=== PATIENT | male | born 1945 | race Caucasian/White ===

== ENCOUNTER 2018-06-13 10:54 | Inpatient (IN) | payer OTHER ==
--- NOTE | 2018-06-13 11:16 | EDPHY ---
H & P Time Seen by Provider: 06/13/18 11:16 HPI/ROS: CHIEF COMPLAINT: Shortness of breath HISTORY OF PRESENT ILLNESS: Sick for 2 weeks started with a cold and hacking cough for 2 weeks. Worse over last 5 days. Was exposed to a RSV and grandson. Today in with 2 or 3 steps he gets very short of breath and has to stop. Symptoms severe but not associated with chest pain. No fevers or chills. Denies chest pain or leg swelling. No hemoptysis. REVIEW OF SYSTEMS: Eye: no change in vision ENT: no sore throat Cardiac: HPI Pulmonary: HPI Abdomen: no vomiting, diarrhea, abdominal pain Musculoskeletal: no back pain or leg swelling Skin: no rash Neuro: no headache Constitutional: no fever : no urinary symptoms A comprehensive 10 point review of systems is otherwise negative aside from elements mentioned in the history of present illness. PAST MEDICAL HISTORY: Includes rheumatic fever, prostate cancer, sleep apnea Social history: Nonsmoker General Appearance: Alert and conversant, cooperative. Eyes: No scleral icterus. ENT, Mouth: Dry mucous membranes. Respiratory: Left lower lobe crackles and rhonchi, mildly tachypneic, speaks in full sentences on nasal cannula. 87% on room air. Cardiovascular: Regular rate and rhythm. Gastrointestinal: Abdomen is soft and non tender. Neurological: Alert, face symmetric, normal motor and sensory in extremities. Skin: Warm and dry, no rashes. No calf tenderness. Musculoskeletal: No peripheral edema. Psychiatric: Not agitated. Emergency Department course/MDM: Presents with signs symptoms of pulmonary infection with hypoxemia. Plan for influenza and RSV, chest x-ray, normal saline IV bolus. 1215: Chest x-ray shows left lower lung pneumonia. 2nd lactate ordered. Severe sepsis with initial 3.4. Fluid bolus, ceftriaxone azithromycin, admit to hospitalist. Discussed with Dr. Kane Dinh at 12:15 p.m. BUN and creatinine noted to be elevated, normal saline fluid IV bolus. Initial lactate elevated but 2nd lactate lasted 2.6. Antibiotics chosen for community-acquired pneumonia. Supplemental oxygen applied nasal cannula to bring saturations into the mid 90s. Smoking Status: Former smoker Constitutional: Initial Vital Signs Temperature (C) 36.6 C 06/13/18 11:01 Heart Rate 134 H 06/13/18 11:01 Respiratory Rate 20 06/13/18 11:01 Blood Pressure 102/59 L 06/13/18 11:01 O2 Sat (%) 87 L 06/13/18 11:01 O2 Delivery Mode Room Air Allergies/Adverse Reactions: ENVIRONMENTAL Allergy (Uncoded 06/27/12 16:58) NASAL CONGESTION/RUNNY NOSE Home Medications: Medication Instructions Recorded Aspirin [Aspirin 81mg (OTC)] 81 mg PO DAILY 06/25/12 [place]-3 Fatty Acids [Fish Oil 1000 1,000 mg PO DAILY 06/25/12 mg (OTC)] Atorvastatin Calcium [Lipitor 10 10 mg PO HS 04/01/13 mg (*)] Acetaminophen [Tylenol 325mg (*)] 325 mg PO Q2D PRN 06/13/18 Glucosamine Sulfate [Glucosamine 500 mg PO HS 06/13/18 Sulfate 500 MG (*)] Herbals/Supplements -Info Only 1 ea PO DAILY 06/13/18 Ibuprofen [Motrin (*)] 200 mg PO Q2D PRN 06/13/18 Lisinopril [Zestril 5 mg (*)] 5 mg PO DAILY 06/13/18 Multivitamins [Multivitamin (*)] 1 each PO DAILY 06/13/18 Medical Decision Making - Diagnostics Imaging Results: Imaging Impressions Chest X-Ray 06/13/18 11:25 Impression: Large infiltrate involving the left lower lobe, particularly pronounced in the superior segment and to a lesser degree the posterior basilar segments, with a suspected tiny left pleural effusion. Clinical correlation and follow-up to assure resolution recommended. Imaging: Discussed imaging studies w/ on call Radiologist, I viewed and interpreted images myself Differential Diagnosis: Differential diagnosis considered for shortness of breath including but not limited to pulmonary infectious process, COPD, asthma, pulmonary embolus and congestive heart failure. Critical Care Time: Critical care time spent by me, Dr. Hester, exclusively with the care of this patient was 35 minutes, exclusive of PA or COMPUTING SYSTEMS MECHANIC time and exclusive of separate procedures. The organ system at risk was pulmonary and I ordered IV fluids, multiple diagnostics, ceftriaxone and azithromycin, supplemental oxygen to stabilize the patient and prevent worsening of the patient's condition. - Data Points Laboratory Results: Laboratory Results 06/13/18 11:32 06/13/18 11:32 06/13/18 06/13/18 06/13/18 11:32 11:32 11:32 WBC 11.80 10^3/uL H 10^3/uL (3.80-9.50) RBC 4.47 10^6/uL 10^6/uL (4.40-6.38) Hgb 13.0 g/dL L g/dL (13.7-17.5) Hct 37.5 % L % (40.0-51.0) MCV 83.9 fL fL (81.5-99.8) MCH 29.1 pg pg (27.9-34.1) MCHC 34.7 g/dL g/dL (32.4-36.7) RDW 14.4 % % (11.5-15.2) Plt Count 217 10^3/uL 10^3/uL (150-400) MPV 10.8 fL fL (8.7-11.7) Neut % (Auto) Not Reported Lymph % (Auto) Not Reported [place] % (Auto) Not Reported Eos % (Auto) Not Reported Baso % (Auto) Not Reported Nucleat RBC Rel Count Not Reported Absolute Neuts (auto) Not Reported Absolute Lymphs (auto) Not Reported Absolute Monos (auto) Not Reported Absolute Eos (auto) Not Reported Absolute Basos (auto) Not Reported Absolute Nucleated RBC Not Reported Immature Gran % Not Reported Seg Neutrophils % 48.0 % % Band Neutrophils % 36.0 % % Lymphocytes % 3.0 % % Monocytes % 5.0 % % Eosinophils % 0.0 % % Basophils % 0.0 % % Metamyelocytes % 7.0 % % Myelocytes % 1.0 % % Promyelocytes % 0.0 % % Blast Cells % 0.0 % % Immature Gran # Not Reported Absolute Seg Neuts 5.66 10^3/uL 10^3/uL (1.70-6.50) Absolute Band Neuts 4.25 10^3/uL H 10^3/uL (0.00-0.70) Absolute Lymphocytes 0.35 10^3/uL L 10^3/uL (1.00-3.00) Absolute Monocytes 0.59 10^3/uL 10^3/uL (0.30-0.80) Absolute Eosinophils 0.00 10^3/uL L 10^3/uL (0.03-0.40) Absolute Basophils 0.00 10^3/uL L 10^3/uL (0.02-0.10) Absolute Metamyelocyte 0.83 10^3/mL H 10^3/mL (0.00-0.00) Absolute Myelocytes 0.12 10^3/mL H 10^3/mL (0.00-0.00) Absolute Promyelocytes 0.00 10^3/uL 10^3/uL (0.00-0.00) Absolute Plasma Cells 0.00 10^3/uL 10^3/uL (0.00-0.00) Nucleated RBCs 0 /100 WBC /100 WBC (0-0) Absolute Blast Cells 0.00 10^3/uL 10^3/uL (0.00-0.00) Plasma Cells % 0.0 % % Toxic Granulation PRESENT H Platelet Estimate ADEQUATE (ADEQ) Polychromasia 1+ H Oval Macrocytes 2+ H Echinocytes 1+ H PT 15.9 SEC H SEC (12.0-15.0) INR 1.33 H (0.83-1.16) APTT 32.0 SEC SEC (23.0-38.0) VBG Lactic Acid Sodium 131 mEq/L L mEq/L (135-145) Potassium 4.4 mEq/L mEq/L (3.5-5.2) Chloride 100 mEq/L mEq/L (97-110) Carbon Dioxide 17 mEq/l L mEq/l (22-31) Anion Gap 14 mEq/L mEq/L (6-14) BUN 37 mg/dL H mg/dL (7-23) Creatinine 1.7 mg/dL H mg/dL (0.7-1.3) Estimated GFR 40 Glucose 176 mg/dL H mg/dL (70-100) Calcium 8.3 mg/dL L mg/dL (8.5-10.4) Total Bilirubin 1.2 mg/dL mg/dL (0.1-1.4) 06/13/18 11:32 WBC RBC Hgb Hct MCV MCH MCHC RDW Plt Count MPV Neut % (Auto) Lymph % (Auto) [place] % (Auto) Eos % (Auto) Baso % (Auto) Nucleat RBC Rel Count Absolute Neuts (auto) Absolute Lymphs (auto) Absolute Monos (auto) Absolute Eos (auto) Absolute Basos (auto) Absolute Nucleated RBC Immature Gran % Seg Neutrophils % Band Neutrophils % Lymphocytes % Monocytes % Eosinophils % Basophils % Metamyelocytes % Myelocytes % Promyelocytes % Blast Cells % Immature Gran # Absolute Seg Neuts Absolute Band Neuts Absolute Lymphocytes Absolute Monocytes Absolute Eosinophils Absolute Basophils Absolute Metamyelocyte Absolute Myelocytes Absolute Promyelocytes Absolute Plasma Cells Nucleated RBCs Absolute Blast Cells Plasma Cells % Toxic Granulation Platelet Estimate Polychromasia Oval Macrocytes Echinocytes PT INR APTT VBG Lactic Acid 3.4 mmol/L H mmol/L (0.7-2.1) Sodium Potassium Chloride Carbon Dioxide Anion Gap BUN Creatinine Estimated GFR Glucose Calcium Total Bilirubin Medications Given: Discontinued Medications Albuterol (Proventil Neb) 3 ml IH ONCE ONE Stop: 06/13/18 14:46 Last Admin: 06/13/18 14:46 Dose: 3 ml Sodium Chloride (Ns) 2,900 mls @ 5,800 mls/hr 30 ml/kg infuse over 30 min ( 2900 ml) IV EDNOW ONE PRN Reason: Protocol Stop: 06/13/18 11:54 Last Admin: 06/13/18 11:37 Dose: 2,900 mls Azithromycin 500 mg/ Dextrose 255 mls @ 255 mls/hr IV EDNOW ONE PRN Reason: Protocol Stop: 06/13/18 13:10 Last Admin: 06/13/18 14:14 Dose: Not Given Ceftriaxone Sodium/Dextrose (Rocephin 1 Gm (Premix)) 50 mls @ 100 mls/hr IV EDNOW ONE PRN Reason: Protocol Stop: 06/13/18 12:39 Last Admin: 06/13/18 12:41 Dose: 50 mls Azithromycin 500 mg/ Sodium (Chloride) 255 mls @ 255 mls/hr IV EDNOW ONE PRN Reason: Protocol Stop: 06/13/18 13:59 Last Admin: 06/13/18 13:20 Dose: 255 mls Departure - Departure Disposition: [facility] Inpatient Acute Clinical Impression: Pneumonia Qualifiers: Pneumonia type: due to unspecified organism Laterality: left Lung location: lower lobe of lung Qualified Code(s): J18.1 - Lobar pneumonia, unspecified organism Condition: Good
[2018-06-13] MEDS ORDERED: NS 2,900 ML IV ONE (11:25)
[2018-06-13 11:46] LABS: PLATELET COUNT 217 10^3/uL (150-400)
[2018-06-13 12:09] LABS: INR 1.33 (0.83-1.16); PROTIME(PATIENT) 15.9 SEC (12.0-15.0)
[2018-06-13] MEDS ORDERED: AZITHROMYCIN IV 500 MG in D5W 250 ML IV ONE (12:11)
--- NOTE | 2018-06-13 12:15 | CPEKG ---
Test Reason : OPEN Blood Pressure : / mmHG Vent. Rate : 127 BPM Atrial Rate : 127 BPM P-R Int : 145 ms QRS Dur : 090 ms QT Int : 291 ms P-R-T Axes : 077 081 052 degrees QTc Int : 424 ms Sinus tachycardia Borderline right axis deviation Abnormal R-wave progression, early transition Confirmed by Curtis Whipple ([id number]) on 06/13/2018 12:14:51 PM Referred By: CURTIS WHIPPLE Confirmed By:Curtis Whipple
[2018-06-13] MEDS ORDERED: ONDANSETRON DISINTEGRATING 4 MG TAB PO PRN (12:26)
[2018-06-13] MEDS ORDERED: ONDANSETRON 4 MG/2 ML VIAL IVP PRN (12:26)
[2018-06-13] MEDS ORDERED: AZITHROMYCIN IV 500 MG in NS 250 ML IV ONE (13:00)
--- NOTE | 2018-06-13 13:10 | GHP ---
[f rep st] HISTORY AND PHYSICAL DATE OF ADMISSION: 06/13/2018 The patient is a pleasant 73-year-old gentleman with a history of prostate cancer, hypertension, and hyperlipidemia who presents to the ER with about 14 days of feeling poorly. He has a 6-week-old gran dchild who has recently been diagnosed with RSV, and he has had some exposure. He has had viral symp toms, bu then over the weekend began feeling worse with cough. It was initially productive of sputum but is now dry. He also had subjective fevers and chills. He has taken Tylenol and ibuprofen. He ultimately decided to come to the emergency department today for further evaluation and care. He martins s not had hemoptysis. He was a smoker for 20 years, but quit in the s. He has not had lower extre mity swelling, PND, or orthopnea. He has not had confusion. REVIEW OF SYSTEMS: A complete 10-point review of systems conducted and is negative except as noted i n the HPI. PAST MEDICAL HISTORY: Hyperlipidemia, mild hypertension, prostate cancer, sleep apnea, and rheumatic fever. SOCIAL HISTORY: He quit smoking 20 years ago. Quit drinking 20 years ago. 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 FAMILY HISTORY: Reviewed and unremarkable. PHYSICAL EXAMINATION: PRESENTING VITALS: Temp 36.6, blood pressure 102/59, pulse 134, breathing 20 times a minute, 87% on room air. GENERAL: In no acute distress. HEENT: Sclerae anicteric. Oropha rynx clear. Mucous membranes moist. NECK: Supple with no lymphadenopathy or JVD. LUNGS: Decrease d breath sounds at the left base, with good air movement. No wheeze. No prolonged expiratory phase. ABDOMEN: Soft, nontender, and nondistended. LOWER EXTREMITIES: No edema. Calves nontender. SKI N: Without rash. NEUROLOGIC: Nonfocal. LABORATORY: Sodium 131, potassium 4.4, chloride 100, bicarb 17, BUN 37, creatinine 1.7. His baselin e creatinine is normal at 1.1 about a year ago. Glucose 176. Venous lactate is 3.4; repeat is pendi ng. INR is elevated at 1.33. White count 11.8, hematocrit 37.5, platelets 217,000. IMAGING: Chest x-ray interpreted by me shows a large left lower lobe infiltrate. TEST DATA: EKG interpreted by me shows sinus tach at 127 with normal axis and intervals. No ST or T -wave changes. I have discussed the case with Dr. Wilberto Hester. ASSESSMENT/PLAN: A 73-year-old gentleman who presents to the hospital with left lower pneumonia and severe sepsis. 1. Severe sepsis, elevated lactate, tachycardia, leukocytosis source. 2. Pneumonia: This is going to be treated as community-acquired pneumonia with ceftriaxone and azit hromycin. Given his asbestos exposure, the patient will require repeat CT at some point. 3. Acute hypoxemic respiratory failure secondary to airspace disease. 4. Hyponatremia: I suspect this is hypovolemic hyponatremia. 5. Acute kidney injury: The patient has acute kidney injury and is likely prerenal. Will hydrate a nd follow tomorrow. 6. Metabolic acidosis: He has a mild acidosis without anion gap; we will follow. 7. Elevated INR: This is likely secondary to his severe sepsis. 8. Prophylaxis: Low molecular-weight heparin. DISPOSITION: Inpatient status. 40 minutes critical care. /[id number]/MODL
[2018-06-13] MEDS ORDERED: ALBUTEROL 3 ML DEYVIAL ONE (14:44)
[2018-06-13] MEDS ORDERED: ALBUTEROL 3 ML DEYVIAL IH ONE (14:45)
[2018-06-13] MEDS: NS 1,000 ML IV SCH (15:24)
[2018-06-13] MEDS: ACETAMINOPHEN 325 MG TAB PO PRN (16:03)
--- NOTE | 2018-06-13 17:41 | PDMN ---
Medical Necessity Medical necessity: Pt meets inpt criteria per MD order and MCG M-160, Sepsis and Other Febrile Illness, without Focal Infection, A-3 days. 73 y/o w/hx prostate ca, HTN, hyperlipidemia, and asbestos exposure in past admitted w/LLL pneumonia and severe sepsis as evidenced by elev lactate (3.4), tachy, leukocytosis, AHRF, hyponatremia, HILARY, and metabolic acidosis. IVF, IV ABX's, suppl O2- currently requiring 4 L, anticipate>2MN for ongoing management of above.
[2018-06-13] MEDS ORDERED: NS BOLUS 500 ML (Wide open) IV ONE (18:00)
[2018-06-13] MEDS ORDERED: CALCIUM CARBONATE 500 MG CHEWABLE TAB PO PRN (20:06)
[2018-06-13] MEDS: BENZONATATE 100 MG CAP PO PRN (20:18)
[2018-06-13] MEDS: CEPACOL LOZENGE PO PRN (20:18)
[2018-06-13] MEDS: GLUCOSAMINE SULF 500 MG CAP PO SCH (20:49)
[2018-06-13] MEDS: ATORVASTATIN CALCIUM 10 MG TAB PO SCH (20:49)
[2018-06-13] MEDS ORDERED: VANCOMYCIN 1.5 GM in NS 250 ML IV SCH (22:30)
[2018-06-13] MEDS: GUAIFENESIN/DM 10 ML UDCUP PO PRN (22:45)
[2018-06-14] MEDS: GUAIFENESIN/DM 10 ML UDCUP PO PRN ×3 (02:53→18:00)
[2018-06-14 05:50] LABS: PLATELET COUNT 213 10^3/uL (150-400)
[2018-06-14] MEDS: ASPIRIN 81 MG CHEWABLE TAB PO SCH (07:34)
[2018-06-14] MEDS: MULTIVITAMINS 1 EACH TAB PO SCH (07:34)
[2018-06-14] MEDS: OMEGA-3 FATTY ACIDS 1,000 MG CAP PO SCH (07:34)
[2018-06-14] MEDS: BENZONATATE 100 MG CAP PO PRN ×2 (07:34→16:51)
[2018-06-14] MEDS: ENOXAPARIN 40 MG/0.4 ML SYR SC SCH (07:35)
[2018-06-14] MEDS ORDERED: AZITHROMYCIN IV 500 MG in NS 250 ML IV SCH (09:00)
[2018-06-14] MEDS ORDERED: Herbals/Supplements -Info Only PO SCH (09:00)
[2018-06-14] MEDS: CEPACOL LOZENGE PO PRN ×3 (09:49→18:00)
--- NOTE | 2018-06-14 10:09 | HOSPPROG ---
Hospitalist Progress Note Assessment/Plan: 73 yo M w pneumococcal sepsis sepsis: severe septic physiology largely resolved bacteremia: 2/2 severe pneumonia follow ID to see CAP: ceftriaxone monotherapy HILARY: resolved proph: LMWH Subjective: case d/w dr escobar. blood cx + for strep pneumo Objective: Vital Signs Temp Pulse Resp BP Pulse Ox 36.7 C 108 H 22 H 138/82 H 93 06/14/18 07:37 06/14/18 07:37 06/14/18 07:37 06/14/18 07:37 06/14/18 07:37 Laboratory Results 06/14/18 05:15 06/14/18 05:15 06/13/18 06/14/18 06/15/18 05:59 05:59 05:59 Intake Total 8002 Output Total 1125 200 Balance 6877 -200 PT 15.9 SEC (12.0-15.0) H 06/13/18 11:32 INR 1.33 (0.83-1.16) H 06/13/18 11:32 - Physical Exam Constitutional: no apparent distress, appears nourished Eyes: PERRL, anicteric sclera Ears, Nose, Mouth, Throat: moist mucous membranes, hearing normal Cardiovascular: regular rate and rhythym, no murmur, rub, or gallop Respiratory: no respiratory distress, other (decreased/absent breath sounds L base) Gastrointestinal: normoactive bowel sounds, soft, non-tender abdomen Genitourinary: no bladder fullness, No reno in urethra Skin: warm, normal color Musculoskeletal: full muscle strength Neurologic: AAOx3 ICD10 Worksheet Patient Problems: Problems Problem Status Onset Pneumonia Acute Adenocarcinoma of prostate Active
--- NOTE | 2018-06-14 12:20 | ASMTCMCOM ---
CM Note CM Note Notes: Pt is a 73 y/o man admitted for LLL PNA. PT has been ordered and awaiting recommendations. ID has been consulted. Transitional care is following. Needs are TBD at this time. CM to follow. Plan: TBD Date Signed: 06/14/2018 12:20 PM Electronically Signed By:CORINNA Bhatti
--- NOTE | 2018-06-14 12:29 | PDCONSULT ---
Mail Processing Clerk Note: Infectious Diseases Consult Note Impression: 73-year-old man who presents to emergency department severe sepsis manifesting as kidney injury and new oxygen requirement, found to have Streptococcus pneumoniae bloodstream infection secondary to left lung pneumonia. Overall he feels improved since admission will focus therapy targeting Streptococcus pneumoniae and will plan oral step-down therapy if he continues to progress in the next 24-48 hours. Acute kidney injury the resolved but he does have an ongoing oxygen need suggesting ongoing pulmonary dysfunction. Discussed in details with the patient and his at bedside expected progression of pneumococcal pneumonia with bloodstream infection. 1. Severe sepsis present on admission with acute kidney injury in new oxygen requirement, resolved acute kidney injury 2. Streptococcus pneumoniae bloodstream infection, pneumonia source 3. Streptococcus pneumoniae left-sided pneumonia 4. Hypoxia requiring supplemental oxygen 5. Acute kidney injury present on admission, improved Plan: 1. Continue ceftriaxone 1 g daily 2. Await susceptibilities of bloodstream isolate 3. Reviewed in detail potential side effects of beta-lactam antibiotics to include: allergy, rash, nausea, antibiotic-associated diarrhea, Clostridioides difficile colitis. Adolfo Cadet MD Infectious Diseases Chief Complaint: Cough, fever, inability to get out of bed Requesting Provider: Dr. Dinh Reason for Referral: Consultation was requested by Dr. Dinh regarding antimicrobial management. HPI: 73-year-old man who presented with approximately 2-3 weeks of a cough illness with fevers that progressed to prostration over the past 4-5 days. He presented to the ED after this 2 week progressive illness due to worsen shortness of breath and inability to get out of bed for approximately 4 days. Chronology of Present Illness: Location of symptoms: Pulmonary Onset of symptoms: Approximately 13 days prior to admission Initial signs/symptoms: Initially developed a nonproductive cough which he thought was related to exposure to multiple family members, including a 4-month- old grandchild, who evolving diagnosed with RSV infection; this was associated with fevers and chills that occurred throughout the day Associated signs/symptoms at onset: Fevers and chills throughout the day and night, nonproductive cough, general fatigue, mild shortness of breath Changes since onset: Nonproductive cough has become more severe and more frequent with only occasional sputum production, intensity of fevers and chills that occur throughout the day has increased, general fatigue has progressed to the point he has been unable to get out of bed for the past 4 days (prior to admission); no rash, arthralgias, myalgias, sinus fullness or pain, sore throat , or headaches Exacerbating factors: None identified Relieving factors: Improved with antibiotics and fluid resuscitation since admission Antibiotics since symptom onset: Ceftriaxone and azithromycin prescribed at hospital admission Change in symptoms with antibiotics: Improvement in general fatigue, improvement in appetite, generally feels improved Relevant social history: Multiple family members diagnosed with RSV infection in the past couple of weeks Relevant PMHx/PSHx: [place] Reviewed patient medical records in [facility], [place], and [facility] ([facility] 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 No travel in the past 2 years with most recent travel in [place] 2 years prior to this admission. Past Medical History: Prostate cancer with resection, no chemotherapy or radiation therapy; hypertension; hyperlipidemia Past Surgical History: Prostate resection due to cancer, fracture fixation in the lower extremity with hardware removal Social History: Does not use tobacco products; Does not consume marijuana products; no alcohol use; Does not use any other drugs currently or in the past Family History: No family members with recurrent infections Allergies: NKDA Medications: Reviewed in medical record and confirmed with patient. ROS: 10 organ systems reviewed; pertinent positives and negatives listed in the HPI, all other organ systems negative. Physical Exam: VS: Reviewed Gen: No acute distress; Breathing comfortably with supplemental oxygen at 4 L by nasal cannula; Able to speak in complete sentences but does cough with conversation Eyes: No conjunctival injection; No scleral icterus HENT: No gross deformities Neck: No limitation in range of motion Pulm: Audible inspiratory sounds to the base on the right, inspiratory breath sounds not heard at the base on the left; bronchial breath sounds in the left with associated rales; No wheeze or rhonchi CV: Normal S1 and S2; Regular tachycardia; No murmurs, rubs, or gallops; No lower extremity edema Abd: Not distended; Normo-active bowel sounds; Soft; Non-tender Skin: A full skin exam including exposed bilateral upper extremities, bilateral lower extremities to the knees, face, neck, abdomen, chest, and back performed; Skin intact, warm, with no rash MSK: Joints without erythema or edema; No gross limitation in range of motion Ext: No clubbing or cyanosis Neuro: Awake and alert Psych: Normal mood and affect Labs/Imaging: All microbiology testing (culture and non-culture) reviewed in the medical record. Personally reviewed and interpreted the images of the following radiographs: Chest x-ray showing left lower lobe consolidation Medications Generic Name Dose Route Start Last Admin Trade Name Freq PRN Reason Stop Dose Admin Ceftriaxone Sodium/Dextrose 50 mls @ 100 mls/hr 06/14/18 09:00 06/14/18 08:53 Rocephin 1 Gm (Premix) IV 07/14/18 08:59 50 mls DAILY MARA Protocol Discontinued Medications Generic Name Dose Route Start Last Admin Trade Name Freq PRN Reason Stop Dose Admin Azithromycin 500 mg/ Sodium 255 mls @ 255 mls/hr 06/13/18 13:00 06/13/18 13: 20 Chloride IV 06/13/18 13:59 255 mls EDNOW ONE Protocol Azithromycin 500 mg/ Sodium 255 mls @ 255 mls/hr 06/14/18 09:00 06/14/18 07: 35 Chloride IV 07/14/18 08:59 255 mls DAILY MARA Protocol Ceftriaxone Sodium/Dextrose 50 mls @ 100 mls/hr 06/13/18 12:10 06/13/18 12:41 Rocephin 1 Gm (Premix) IV 06/13/18 12:39 50 mls EDNOW ONE Protocol Microbiology 06/13/18 11:32 Blood Blood Panel (PCR) - Final Streptococcus Pneumoniae 06/13/18 12:43 Blood Blood Culture - Preliminary Gram Positive Cocci Chains 06/13/18 11:32 Blood Blood Culture - Preliminary 06/13/18 11:32 Blood Gram Positive Cocci Chains Laboratory Tests 06/13/18 06/13/18 06/13/18 11:32 11:32 11:32 WBC 11.80 H Hgb 13.0 L Plt Count 217 Absolute Seg Neuts 5.66 Absolute Band Neuts 4.25 H Absolute Lymphocytes 0.35 L VBG Lactic Acid 3.4 H Creatinine 1.7 H Nasal Influenza A PCR Nasal Influenza B PCR RSV (PCR) 06/13/18 06/14/18 06/14/18 12:43 01:33 05:15 WBC 15.57 H Hgb 11.1 L Plt Count 213 Absolute Seg Neuts 14.95 H Absolute Band Neuts 0.31 Absolute Lymphocytes 0.31 L VBG Lactic Acid 1.5 Creatinine Nasal Influenza A PCR NEGATIVE FOR FLU A Nasal Influenza B PCR NEGATIVE FOR FLU B RSV (PCR) NEGATIVE FOR RSV 06/14/18 05:15 WBC Hgb Plt Count Absolute Seg Neuts Absolute Band Neuts Absolute Lymphocytes VBG Lactic Acid Creatinine 1.1 Nasal Influenza A PCR Nasal Influenza B PCR RSV (PCR) Ongoing monitoring for antimicrobial toxicity with: CBC, BMP.
[2018-06-14] MEDS: NS 1,000 ML IV SCH ×2 (16:07→22:23)
[2018-06-14] MEDS: GLUCOSAMINE SULF 500 MG CAP PO SCH (21:07)
[2018-06-14] MEDS: guaiFENesin/CODEINE PHOS 10 ML UDCUP PO PRN (21:07)
[2018-06-14] MEDS: ATORVASTATIN CALCIUM 10 MG TAB PO SCH (21:07)
[2018-06-14] MEDS ORDERED: ALBUTEROL 3 ML DEYVIAL IH PRN (23:12)
[2018-06-15] MEDS ORDERED: guaiFENesin/CODEINE PHOS 10 ML UDCUP PO ONE (01:00)
[2018-06-15] MEDS: ACETAMINOPHEN 325 MG TAB PO PRN (01:00)
[2018-06-15] MEDS: BENZONATATE 100 MG CAP PO PRN (01:00)
[2018-06-15] MEDS: NS 1,000 ML IV SCH ×2 (04:51→21:09)
[2018-06-15] MEDS: GUAIFENESIN/DM 10 ML UDCUP PO PRN (04:51)
--- NOTE | 2018-06-15 09:46 | HOSPPROG ---
Hospitalist Progress Note Assessment/Plan: 73 yo M w pneumococcal sepsis sepsis: severe septic physiology resolved bacteremia: 2/2 severe pneumonia follow ceftriaxone repeat cx at discretion of ID AHRF: 2/2 dense airspace disease CAP: ceftriaxone monotherapy hyponatremia: mild, follow HILARY: resolved proph: LMWH Subjective: cxr w dense LLL infiltrate, no effusion (interp by me). case d/w dr patricia Objective: Vital Signs Temp Pulse Resp BP Pulse Ox 36.6 C 92 20 166/89 H 97 06/15/18 08:00 06/15/18 08:00 06/15/18 08:00 06/15/18 08:00 06/15/18 08:00 Laboratory Results 06/14/18 05:15 06/15/18 04:53 06/14/18 06/15/18 06/16/18 05:59 05:59 05:59 Intake Total 8002 5495 1350 Output Total 1125 1150 Balance 6877 4345 1350 PT 15.9 SEC (12.0-15.0) H 06/13/18 11:32 INR 1.33 (0.83-1.16) H 06/13/18 11:32 - Physical Exam Constitutional: no apparent distress, not in pain Eyes: PERRL, anicteric sclera Ears, Nose, Mouth, Throat: moist mucous membranes, hearing normal Cardiovascular: regular rate and rhythym, no murmur, rub, or gallop Respiratory: no respiratory distress, other (absent breath sounds LLL) Gastrointestinal: normoactive bowel sounds, soft, non-tender abdomen Genitourinary: no bladder fullness, No reno in urethra Skin: warm, normal color Musculoskeletal: full muscle strength Neurologic: AAOx3 ICD10 Worksheet Patient Problems: Problems Problem Status Onset Pneumonia Acute Adenocarcinoma of prostate Active
[2018-06-15] MEDS: MULTIVITAMINS 1 EACH TAB PO SCH (10:04)
[2018-06-15] MEDS: ASPIRIN 81 MG CHEWABLE TAB PO SCH (10:04)
[2018-06-15] MEDS: OMEGA-3 FATTY ACIDS 1,000 MG CAP PO SCH (10:05)
[2018-06-15] MEDS: ENOXAPARIN 40 MG/0.4 ML SYR SC SCH (10:05)
--- NOTE | 2018-06-15 13:22 | PCMIDPN ---
Assessment/Plan: Assessment: 73-year-old man with pneumococcal bloodstream infection secondary to pneumonia was clinically improving. No longer has physiologic derangements consistent with severe sepsis that he had a presentation in his kidney dysfunction as normalized. He continues to require supplemental oxygen is quite short of breath without this at this time. 1. Pneumococcal bloodstream infection secondary to community onset pneumonia 2. Pneumococcal pneumonia, left-sided 3. Hypoxia requiring ongoing supplemental oxygen 4. Acute kidney injury present on admission, resolved Plan: 1. Continue ceftriaxone 1 g daily 2. Plan to transition to oral therapy at discharge 3. Reviewed in detail potential side effects of beta-lactam antibiotics to include: allergy, rash, nausea, antibiotic-associated diarrhea, Clostridioides difficile colitis. Adolfo Cadet MD Infectious Diseases 06/15/18 13:22 Subjective: No fever or chills in the past 24-hours. No diarrhea, nausea, or other GI symptoms. No rash. Appetite improving. Improved since admission but not back to baseline health. Objective: Vital Signs Temp Pulse Resp BP Pulse Ox 36.6 C 87 20 149/69 H 95 06/15/18 11:54 06/15/18 11:54 06/15/18 11:54 06/15/18 11:54 06/15/18 11:54 Laboratory Results 06/14/18 05:15 06/15/18 04:53 06/14/18 06/15/18 06/16/18 05:59 05:59 05:59 Intake Total 8002 5495 1350 Output Total 1125 1150 Balance 6877 4345 1350 Medications Generic Name Dose Route Start Last Admin Trade Name Freq PRN Reason Stop Dose Admin Ceftriaxone Sodium/Dextrose 50 mls @ 100 mls/hr 06/14/18 09:00 06/15/18 10:05 Rocephin 1 Gm (Premix) IV 07/14/18 08:59 50 mls DAILY MARA Protocol Discontinued Medications Generic Name Dose Route Start Last Admin Trade Name Freq PRN Reason Stop Dose Admin Ceftriaxone Sodium/Dextrose 50 mls @ 100 mls/hr 06/13/18 12:10 06/13/18 12:41 Rocephin 1 Gm (Premix) IV 06/13/18 12:39 50 mls EDNOW ONE Protocol Azithromycin 500 mg/ Sodium 255 mls @ 255 mls/hr 06/13/18 13:00 06/13/18 13: 20 Chloride IV 06/13/18 13:59 255 mls EDNOW ONE Protocol Azithromycin 500 mg/ Sodium 255 mls @ 255 mls/hr 06/14/18 09:00 06/14/18 07: 35 Chloride IV 07/14/18 08:59 255 mls DAILY MARA Protocol Vancomycin HCl 1.5 gm/ Sodium 250 mls @ 166.667 mls/hr 06/13/18 22:30 22:45 Chloride IV 07/13/18 22:29 250 mls [facility] Microbiology 06/13/18 11:32 Blood Blood Panel (PCR) - Final Streptococcus Pneumoniae 06/13/18 12:43 Blood Blood Culture - Preliminary Streptococcus Pneumoniae 06/13/18 11:32 Blood Blood Culture - Preliminary 06/13/18 11:32 Blood Streptococcus Pneumoniae Laboratory Tests 06/13/18 06/13/18 06/14/18 11:32 11:32 05:15 WBC 11.80 H 15.57 H Hgb 13.0 L 11.1 L Plt Count 217 213 Creatinine 1.7 H 06/14/18 06/15/18 05:15 04:53 WBC Hgb Plt Count Creatinine 1.1 1.0 - Physical Exam General Appearance: apparent distress, non-toxic EENT: No scleral icterus Respiratory: No respiratory distress, No accessory muscle use, No wheezing ( Rales posteriorly on the left associated with bronchial breathing on the mid lung zone) Neck: full range of motion, supple Cardiac/Chest: regular rate, rhythm, No bradycardia, No tachycardia, No diastolic murmur, No systolic murmur Extremities: No erythema Abdomen: non-tender, soft, distended, No guarding Skin: No erythema Neuro/Psych: alert, oriented x 3, depressed affect, No confused - Time Spent With Patient Time Spent with Patient: greater than 25 minutes Time Spent with Patient: Greater than 25 minutes spent on this patients care, greater than 50% of time spent counseling, educating, and coordinating care regarding the above mentioned plan. ICD10 Worksheet Patient Problems: Problems Problem Status Onset Pneumonia Acute Adenocarcinoma of prostate Active
--- NOTE | 2018-06-15 13:56 | PDIAF ---
- Diagnosis Code Status: Full Code - Medication Management Discharge Medications: electronically signed and located in the Home Medication List. - Orders Isolation Type: None - Follow Up Care Current Providers and Referrals: Jewel Rivera MD [Primary Care Provider] - As per Instructions Adolfo Cadet MD [Medical Doctor] - 06/29/18 2:30 pm
--- NOTE | 2018-06-15 14:31 | ASMTCMCOM ---
CM Note CM Note Notes: Pts case discussed w/ Jessica RN. PT is still pending. Pt currently on 3.5L of o2. Per ID's note, pt will most likely be able to switch from ivabx to orals. CM met w/ pt and pts for dispo planning. Pt and would like HC services. Pts is currently feeling under the weather and feels like the extra support will be helpful. They [facility] using [facility]. [facility] able [facility] accept. Pts - Jamie wanted to give her number to [facility]. It is P#: [phone]. Pts PCP is Dr. Varner. CM to follow. Plan: [facility]; PT Date Signed: 06/15/2018 02:31 PM Electronically Signed By:CORINNA Bhatti
[2018-06-15] MEDS: GLUCOSAMINE SULF 500 MG CAP PO SCH (21:09)
[2018-06-15] MEDS: guaiFENesin/CODEINE PHOS 10 ML UDCUP PO PRN (21:09)
[2018-06-15] MEDS: ATORVASTATIN CALCIUM 10 MG TAB PO SCH (21:09)
[2018-06-16] MEDS: GUAIFENESIN/DM 10 ML UDCUP PO PRN ×2 (01:45→17:38)
[2018-06-16] MEDS: OMEGA-3 FATTY ACIDS 1,000 MG CAP PO SCH (08:07)
[2018-06-16] MEDS: ASPIRIN 81 MG CHEWABLE TAB PO SCH (08:08)
[2018-06-16] MEDS: ENOXAPARIN 40 MG/0.4 ML SYR SC SCH (08:08)
[2018-06-16] MEDS: MULTIVITAMINS 1 EACH TAB PO SCH (08:08)
--- NOTE | 2018-06-16 15:31 | HOSPPROG ---
Hospitalist Progress Note Assessment/Plan: Subjective Follow-up on sepsis and bacteremia. Patient states he is feeling much better as compared to when he 1st came in. His cough seems to be improving as well but still present. His was present at the bedside and updated as well. No acute events overnight. I did reduce his oxygen to 1 L from 3 and during my evaluation he was able to maintain normal oxygen saturations with 1 L. Objective Vital signs as detailed below Physical exam General-awake alert conversant no acute distress Heart-regular rate and rhythm no murmurs Lungs-normal respiratory effort with mild crackles at lung base no wheezing. Abdomen-soft nontender nondistended normal bowel sounds -no Collins catheter in place Extremities-no significant pitting edema or calf pain with palpation Skin-no concerning skin rashes noted Labs as detailed below Assessment and plan Sepsis-improved parameters. Bacteremia-strep pneumo. Repeat blood cultures with tomorrow morning's labs to document clearance. Acute hypoxic respiratory failure-improving. I was able to wean down oxygen during my evaluation. I considered scheduled nebulizers but no significant wheezing on exam. Pneumonia-community acquired. Improving with current therapy. I appreciate Infectious disease's assistance on the case as well. Hyponatremia-suspected hypovolemia related. Improving with IV fluids with sodium from 131-134. I think we can hold off on IV fluids at this point time. Acute kidney injury-resolved. Creatinine within normal limits. Hypertension-patient takes lisinopril 5 mg daily as an outpatient. Consider resuming tomorrow if continued stability. Obstructive sleep apnea-patient is compliant with home CPAP therapy. I encouraged him to bring his home CPAP machine to the hospital so that he can use while he is here. Hyperlipidemia-atorvastatin. DVT prophylaxis-Lovenox. Disposition-patient appears to be progressing well and likely able for discharge to home once medically clear. Objective: Vital Signs Temp Pulse Resp BP Pulse Ox 36.6 C 86 18 146/75 H 93 06/16/18 12:00 06/16/18 12:00 06/16/18 12:00 06/16/18 12:00 06/16/18 12:00 Microbiology 06/13/18 12:43 Blood Culture - Final Blood Streptococcus Pneumoniae Laboratory Results 06/14/18 05:15 06/16/18 06:10 03/22/19 03/23/19 03/24/19 05:59 05:59 05:59 Intake Total 5495 3000 Output Total 1150 350 Balance 4345 2650 PT 15.9 SEC (12.0-15.0) H 06/13/18 11:32 INR 1.33 (0.83-1.16) H 06/13/18 11:32 ICD10 Worksheet Patient Problems: Problems Problem Status Onset Pneumonia Acute Adenocarcinoma of prostate Active
--- NOTE | 2018-06-16 17:58 | PCMIDPN ---
Assessment/Plan: Assessment: 73-year-old man with pneumococcal bloodstream infection secondary to pneumonia was clinically improving. Continues to improve with decreasing oxygen required down to 1 L by nasal cannula. He is able to expectorate large amount of sputum which is likely underlying his improvement oxygen requirement. Discussed with patient and at bedside precautions to take with young grandchildren when they get sick in the role of vaccination to prevent recurrent pneumococcal pneumonia. 1. Pneumococcal bloodstream infection secondary to community onset pneumonia; improved 2. Pneumococcal pneumonia, left-sided 3. Hypoxia requiring ongoing supplemental oxygen; improved 4. Acute kidney injury present on admission; resolved Plan: 1. Continue ceftriaxone 1 g daily 2. Oral therapy at discharge will be amoxicillin 875 mg p.o. 3 times daily; stop date will be 06/24/2018 3. Reviewed in detail potential side effects of beta-lactam antibiotics to include: allergy, rash, nausea, antibiotic-associated diarrhea, Clostridioides difficile colitis. Adolfo Cadet MD Infectious Diseases 06/16/18 17:57 Subjective: No fever or chills in the past 24-hours. Improving appetite and oral intake. Able to expectorate large amounts of sputum with cough which then causes improvement in shortness of breath. He has no diarrhea. He has developed a pruritic rash over his back. Objective: Vital Signs Temp Pulse Resp BP Pulse Ox 36.7 C 93 16 143/72 H 98 06/16/18 16:00 06/16/18 16:00 06/16/18 16:00 06/16/18 16:00 06/16/18 16:00 Microbiology 06/13/18 12:43 Blood Culture - Final Blood Streptococcus Pneumoniae Laboratory Results 06/14/18 05:15 06/16/18 06:10 06/15/18 06/16/18 06/17/18 05:59 05:59 05:59 Intake Total 5495 3000 Output Total 1150 350 Balance 4345 3800 Medications Generic Name Dose Route Start Last Admin Trade Name Freq PRN Reason Stop Dose Admin Ceftriaxone Sodium/Dextrose 50 mls @ 100 mls/hr 06/14/18 09:00 06/16/18 08:08 Rocephin 1 Gm (Premix) IV 07/14/18 08:59 50 mls DAILY MARA Protocol Microbiology 06/13/18 12:43 Blood Blood Culture - Final Streptococcus Pneumoniae 03/20/19 11:32 Blood Blood Culture - Final 06/13/18 11:32 Blood Blood Panel (PCR) - Final Streptococcus Pneumoniae Streptococcus Pneumoniae Laboratory Tests 06/13/18 06/13/18 06/14/18 11:32 11:32 05:15 WBC 11.80 H 15.57 H Creatinine 1.7 H 06/16/18 06:10 WBC Creatinine 0.9 - Physical Exam General Appearance: no apparent distress, non-toxic EENT: No scleral icterus Respiratory: No respiratory distress, No accessory muscle use Neck: full range of motion, supple Extremities: No erythema Abdomen: non-tender, soft, No distended, No guarding Skin: other (Scattered papular erythematous lesions that blanches on palpation over his back consistent with a heat rash) Neuro/Psych: alert, normal mood/affect, oriented x 3, No confused - Time Spent With Patient Time Spent with Patient: greater than 25 minutes Time Spent with Patient: Greater than 25 minutes spent on this patients care, greater than 50% of time spent counseling, educating, and coordinating care regarding the above mentioned plan. ICD10 Worksheet Patient Problems: Problems Problem Status Onset Pneumonia Acute Adenocarcinoma of prostate Active
--- NOTE | 2018-06-16 17:59 | PDIAF ---
- Diagnosis Diagnosis: Streptococcus pneumoniae bloodstream infection complicating community onset Code Status: Full Code - Medication Management Halfway Antibiotics: Amoxicillin 875 mg p.o. 3 times daily Intelligence Officer Antibiotic Stop Date: 06/24/18 Discharge Medications: electronically signed and located in the Home Medication List. - Orders Isolation Type: None - Follow Up Care Current Providers and Referrals: Adolfo Cadet MD [Medical Doctor] - 06/29/18 2:30 pm Jewel Rivera MD [Primary Care Provider] - As per Instructions
[2018-06-16] MEDS: GLUCOSAMINE SULF 500 MG CAP PO SCH (21:22)
[2018-06-16] MEDS: guaiFENesin/CODEINE PHOS 10 ML UDCUP PO PRN (21:22)
[2018-06-16] MEDS: ATORVASTATIN CALCIUM 10 MG TAB PO SCH (21:22)
[2018-06-17 05:25] LABS: PLATELET COUNT 333 10^3/uL (150-400)
[2018-06-17] MEDS: ENOXAPARIN 40 MG/0.4 ML SYR SC SCH (08:00)
[2018-06-17] MEDS: OMEGA-3 FATTY ACIDS 1,000 MG CAP PO SCH (08:00)
[2018-06-17] MEDS: ASPIRIN 81 MG CHEWABLE TAB PO SCH (08:00)
[2018-06-17] MEDS: MULTIVITAMINS 1 EACH TAB PO SCH (08:00)
--- NOTE | 2018-06-17 10:40 | PCMIDPN ---
Assessment/Plan: Assessment: 73-year-old man with pneumococcal bloodstream infection secondary to pneumonia was clinically improving. Continues to improve with decreasing oxygen required down to 1 L by nasal cannula. Overall he has a markedly improved and is appropriate for transition to oral therapy to complete treatment. Outpatient follow-up is been arranged and he has contact numbers for Infectious Diseases if things should change once discharged. 1. Pneumococcal bloodstream infection secondary to community onset pneumonia; improved 2. Pneumococcal pneumonia, left-sided 3. Hypoxia requiring ongoing supplemental oxygen; improved 4. Acute kidney injury present on admission; resolved Plan: 1. Continue ceftriaxone 1 g daily while inpatient 2. Oral therapy at discharge will be amoxicillin 875 mg p.o. 3 times daily; stop date will be 06/24/2018 3. Reviewed in detail potential side effects of beta-lactam antibiotics to include: allergy, rash, nausea, antibiotic-associated diarrhea, Clostridioides difficile colitis. 4. Outpatient Infectious Diseases follow-up arranged; will follow repeat blood cultures Adolfo Cadet MD Infectious Diseases 06/17/18 10:37 Subjective: No fever or chills in the past 24-hours. Appetite continues to improve with increasing oral intake. No abdominal pain or diarrhea. Rash present on his back is become less pruritic after shower. Objective: Vital Signs Temp Pulse Resp BP Pulse Ox 36.5 C 89 16 135/70 H 94 06/17/18 08:00 06/17/18 08:00 06/17/18 08:00 06/17/18 08:00 06/17/18 08:00 Microbiology 06/13/18 12:43 Blood Culture - Final Blood Streptococcus Pneumoniae Laboratory Results 06/17/18 04:55 06/17/18 04:55 06/16/18 06/17/18 06/18/18 05:59 05:59 05:59 Intake Total 3000 300 Output Total 350 400 Balance 2650 -100 Medications Generic Name Dose Route Start Last Admin Trade Name Freq PRN Reason Stop Dose Admin Ceftriaxone Sodium/Dextrose 50 mls @ 100 mls/hr 06/14/18 09:00 06/17/18 08:01 Rocephin 1 Gm (Premix) IV 07/14/18 08:59 50 mls DAILY MARA Protocol Discontinued Medications Generic Name Dose Route Start Last Admin Trade Name Freq PRN Reason Stop Dose Admin Ceftriaxone Sodium/Dextrose 50 mls @ 100 mls/hr 06/13/18 12:10 06/13/18 12:41 Rocephin 1 Gm (Premix) IV 06/13/18 12:39 50 mls EDNOW ONE Protocol Microbiology 06/13/18 12:43 Blood Blood Culture - Final Streptococcus Pneumoniae 06/13/18 11:32 Blood Blood Culture - Final 06/13/18 11:32 Blood Blood Panel (PCR) - Final Streptococcus Pneumoniae Streptococcus Pneumoniae Laboratory Tests 06/13/18 06/14/18 06/17/18 12:43 05:15 04:55 WBC 15.57 H 13.07 H Creatinine RSV (PCR) NEGATIVE FOR RSV 06/17/18 04:55 WBC Creatinine 0.8 RSV (PCR) - Physical Exam General Appearance: no apparent distress, non-toxic, other (Breathing comfortably with supplemental oxygen at 1 L by nasal cannula; able to this leak and complete sentences; does not cough while conversing) EENT: No scleral icterus Respiratory: No respiratory distress, No accessory muscle use Neck: full range of motion, supple Skin: No erythema (Did not examine back rash today) Neuro/Psych: alert, normal mood/affect, oriented x 3, No confused - Time Spent With Patient Time Spent with Patient: greater than 25 minutes Time Spent with Patient: Greater than 25 minutes spent on this patients care, greater than 50% of time spent counseling, educating, and coordinating care regarding the above mentioned plan. ICD10 Worksheet Patient Problems: Problems Problem Status Onset Pneumonia Acute Adenocarcinoma of prostate Active
[2018-06-17] MEDS: LISINOPRIL 5 MG TAB PO SCH (14:39)
--- NOTE | 2018-06-17 16:58 | HOSPPROG ---
Hospitalist Progress Note Assessment/Plan: Subjective Follow-up on sepsis and bacteremia. Patient noted diminished hearing in his left ear since coming in. Otherwise patient states breathing feels better in coughing is less overall feels like he is improving. Objective Vital signs as detailed below Physical exam General-awake alert conversant no acute distress Ear-mild erythema around the left tympanic membrane but no evidence of otitis media Heart-regular rate and rhythm no murmurs Lungs-normal respiratory effort with mild crackles at lung base no wheezing. Abdomen-soft nontender nondistended normal bowel sounds -no Collins catheter in place Extremities-no significant pitting edema or calf pain with palpation Skin-no concerning skin rashes noted Labs as detailed below Assessment and plan Sepsis-improved parameters. Bacteremia-strep pneumo. Repeat blood cultures with tomorrow morning's labs to document clearance. Acute hypoxic respiratory failure-improving. I was able to wean down oxygen during my evaluation. I considered scheduled nebulizers but no significant wheezing on exam. Pneumonia-community acquired. Improving with current therapy. I appreciate Infectious disease's assistance on the case as well. Hyponatremia-resolved with sodium at 1:35 a.m. Today. Hypertension-elevated blood pressures. Lisinopril 5 mg daily report resumed. This is typical outpatient antihypertensive regimen. Obstructive sleep apnea-patient is compliant with home CPAP therapy. I encouraged him to bring his home CPAP machine to the hospital so that he can use while he is here. Hyperlipidemia-atorvastatin. DVT prophylaxis-Lovenox. Disposition-patient appears to be progressing well and likely able for discharge to home once medically clear. Objective: Vital Signs Temp Pulse Resp BP Pulse Ox 36.7 C 88 16 156/79 H 92 06/17/18 16:00 06/17/18 16:00 06/17/18 16:00 06/17/18 16:00 06/17/18 16:00 Microbiology 06/13/18 12:43 Blood Culture - Final Blood Streptococcus Pneumoniae Laboratory Results 06/17/18 04:55 06/17/18 04:55 06/16/18 06/17/18 06/18/18 05:59 05:59 05:59 Intake Total 3000 300 Output Total 350 400 Balance 2650 -100 PT 15.9 SEC (12.0-15.0) H 06/13/18 11:32 INR 1.33 (0.83-1.16) H 06/13/18 11:32 ICD10 Worksheet Patient Problems: Problems Problem Status Onset Pneumonia Acute Adenocarcinoma of prostate Active
[2018-06-17] MEDS: GUAIFENESIN/DM 10 ML UDCUP PO PRN ×2 (17:09→21:21)
[2018-06-17] MEDS: ATORVASTATIN CALCIUM 10 MG TAB PO SCH (20:46)
[2018-06-17] MEDS: GLUCOSAMINE SULF 500 MG CAP PO SCH (20:46)
[2018-06-18] MEDS: MULTIVITAMINS 1 EACH TAB PO SCH (08:20)
[2018-06-18] MEDS: ASPIRIN 81 MG CHEWABLE TAB PO SCH (08:20)
[2018-06-18] MEDS: BENZONATATE 100 MG CAP PO PRN (08:21)
[2018-06-18] MEDS: guaiFENesin/CODEINE PHOS 10 ML UDCUP PO PRN (08:21)
[2018-06-18] MEDS: ENOXAPARIN 40 MG/0.4 ML SYR SC SCH (08:21)
[2018-06-18] MEDS: OMEGA-3 FATTY ACIDS 1,000 MG CAP PO SCH (08:21)
[2018-06-18] MEDS: LISINOPRIL 5 MG TAB PO SCH (08:21)
[2018-06-18 11:33] VITALS: BP 124/67
--- NOTE | 2018-06-18 12:59 | PDIAF ---
- Diagnosis Diagnosis: Streptococcus pneumoniae bloodstream infection complicating community onset Code Status: Full Code - Medication Management Chcf Antibiotics: Amoxicillin 875 mg p.o. 3 times daily Programming Development Project Manager Antibiotic Stop Date: 06/24/18 Discharge Medications: electronically signed and located in the Home Medication List. - Orders Services needed: Home Care, Registered Nurse Home Care Face to Face: I certify that this patient was under my care and that I had the required [id number] encounter meeting the encounter requirements on the discharge day. My findings support the fact that the patient is homebound as defined in Home Care Face to Face Continued: CMS Chapter 7 Medicare Benefits Manual 30.1.1 , The condition of the patient is such that there exists a normal inability to leave home and consequently, leaving home would require a considerable and taxing effort. Isolation Type: None Diet Recommendation: no restrictions on diet Diet Texture: Regular Texture Diet - Follow Up Care Current Providers and Referrals: Adolfo Cadet MD [Medical Doctor] - 06/29/18 2:30 pm Jewel Rivera MD [Primary Care Provider] - As per Instructions
--- NOTE | 2018-06-18 14:14 | ASMTLACE ---
RUTH Length of stay for Answers: 4-6 days current admission Acuity / Level of Answers: Yes Care: Did the patient have an inpatient admission? # of Emergency department Answers: 1-2 visits in the last 6 months Score: 8 Date Signed: 06/18/2018 02:13 PM Electronically Signed By:Starr Pham
--- NOTE | 2018-06-18 14:30 | ASMTDCNOTE ---
Case Management Discharge Discharge Order Complete? Answers: Yes Followup Appointment 06/18/2018 12:00 AM Patient to Obtain Answers: Independently Medications Transportation Arranged Answers: Family/Friends Transport will Pick (Date 06/18/2018 12:00 AM & Time) Discharge Comments Notes: CM met with porfirio and his . Patient requested Homecare Nurse through [facility]. transported pateint home. [facility] was notified of discharge. No further CM needs noted at this time. Date Signed: 06/18/2018 02:30 PM Electronically Signed By:Starr Pham
--- NOTE | 2018-06-18 14:33 | ASDISCHSUM ---
Discharge Information Plan Status:Home with Home Health Medically Cleared to Leave:06/18/2018 Discharge Date:06/18/2018 01:50 PM CM D/C Disposition:Home Health Service ADT D/C Disposition:Home Health Service Projected Discharge Date:06/16/2018 11:00 AM Transportation at D/C:Family Discharge Delay Reason: Follow-Up Date:06/16/2018 11:00 AM Discharge Slot: Final Diagnosis:PNA Placement Information Referral Type:Home Infusion Referral ID:[id number] Provider Name: Address 1: Phone Number: Address 2: Fax Number: City: Selection Factors: State: Referral Type:*Home Health Care Services Referral ID:[id number] Provider Name:[facility] Care Address 1:[address] [facility] [address] Address 2: City:[place] Selection Factors: State:[place] Patient Contact Information Contact Name:MARCYTYE Relationship: Address:[address] City:[place] Alternate Phone: State/Zip Code:[place] [address] Email: Financial Information Financial Class:Medicare Advantage Plans Primary Plan Desc:[employer] MED[employer]AR[employer]PLETE SECURE Primary Plan Number:[id number] Secondary Plan Desc: Secondary Plan Number: Assessment Information LACE LACE Length of stay for Answers: 4-6 days current admission Acuity / Level of Answers: Yes Care: Did the patient have an inpatient admission? # of Emergency department Answers: 1-2 visits in the last 6 months Score: 8 Date Signed: 06/18/2018 02:13 PM Electronically Signed By:Starr Pham [facility] CM Progress Note CM Note CM Note Notes: Pt is a 73 y/o man admitted for LLL PNA. PT has been ordered and awaiting recommendations. ID has been consulted. Transitional care is following. Needs are TBD at this time. CM to follow. Plan: TBD Date Signed: 06/14/2018 12:20 PM Electronically Signed By:CORINNA Bhatti [facility] CM Progress Note CM Note CM Note Notes: Pts case discussed w/ LENI Lopez. PT is still pending. Pt currently on 3.5L of o2. Per ID's note, pt will most likely be able to switch from ivabx to orals. CM met w/ pt and pts for dispo planning. Pt and would like HC services. Pts is currently feeling under the weather and feels like the extra support will be helpful. They have agreed to using [facility]. [facility] is able to accept. Pts - Jamie wanted to give her number to [facility]. It is P#: [phone]. Pts PCP is Dr. Varner. CM to follow. Plan: [facility]; PT Date Signed: 06/15/2018 02:31 PM Electronically Signed By:CORINNA Bhatti Case Management Discharge Plan Note Case Management Discharge Discharge Order Complete? Answers: Yes Followup Appointment 06/18/2018 12:00 AM Patient to Obtain Answers: Independently Medications Transportation Arranged Answers: Family/Friends Transport will Pick (Date 06/18/2018 12:00 AM & Time) Discharge Comments Notes: CM met with porfirio and his . Patient requested Homecare Nurse through [facility]. transported pateint home. [facility] was notified of discharge. No further CM needs noted at this time. Date Signed: 06/18/2018 02:30 PM Electronically Signed By:Starr Pham Intervention Information Intervention Type:*IM-Signed Date of Service:06/18/2018 01:35 PM Patient Type:Inpatient Staff Member:Keren Dia Hours: Discipline: Severity: Comment:
--- NOTE | 2018-06-18 17:04 | GDS ---
[f rep st] DISCHARGE SUMMARY DISCHARGE DIAGNOSES: 1. Strep pneumonia bacteremia. 2. Pneumonia. HISTORY OF PRESENT ILLNESS: The patient is a pleasant 73-year-old gentleman with a past medical hist ory of hypertension and obstructive sleep apnea, who presented to the [facility] on 0 06/13/2018, with complaints of 2-week history of not feeling well and productive cough. Chest x-ray s howed evidence of a large infiltrate involving the left lower lobe. Blood cultures obtained in the e mergency room subsequently grew out strep pneumonia. The patient responded well with IV ceftriaxone. Infectious Disease was also consulted on the case. Repeat blood cultures did clear and over the mott bsequent days in the hospital, patient had a gradual improvement. Also being able to wean completely off oxygen. It was recommended that he complete Augmentin 875 mg 3 times a day to be continued unti l 06/24/2018. HOSPITAL COURSE BY PROBLEM: 1. Sepsis. Improved parameters during his time in the hospital with treatment. 2. Bacteremia, strep pneumo. Repeat blood cultures have documented clearance. Continue course of a ntibiotic therapy as recommended by Infectious Disease. 3. Acute hypoxic respiratory failure, resolved. Patient was weaned off to room air prior to dischar ge. 4. Left lower lobe pneumonia. Complete course of antibiotic therapy. Consider repeat in 3-4 weeks to document resolution. 5. Hypertension. His normal lisinopril 5 mg daily was held upon initial admission, but this was res umed prior to discharge. 6. Obstructive sleep apnea. The patient is compliant with CPAP therapy at home. 7. Hyperlipidemia. The patient was continued on atorvastatin. 8. Deep venous thrombosis prophylaxis. Patient was on Lovenox during this hospitalization. DISPOSITION: The patient appears stable for discharge home with home health nursing to follow up wit h him. DISCHARGE PHYSICAL EXAMINATION: VITAL SIGNS: On day of discharge, temperature 36.6, blood pressure 124/67, heart rate 87, respirations 16, satting 93% on room air. GENERAL: The patient appears comfo rtable. He is awake, alert, conversant, in no acute distress. HEART: Regular rate and rhythm. No murmurs appreciated. LUNGS: No wheezing noted. Respiratory effort was normal, crackles at lung bas es that are mild. ABDOMEN: Soft, nontender and nondistended. : No Collins catheter in place. LOW ER EXTREMITIES: Pitting edema, both lower extremities, equal on both sides. No calf pain with palpa tion. NOTABLE STUDIES: White blood cell count 13, hemoglobin 10.4, platelets 333. Sodium 135, potassium 3 .7, chloride 108, bicarb 20, BUN 20, creatinine 0.8, glucose of 89. DISCHARGE MEDICATIONS: 1. Augmentin 875 p.o. 3 times a day to be completed 06/24/2018. 2. Aspirin 81 mg daily. 3. Atorvastatin 10 mg nightly. 4. Lisinopril 5 mg daily. DISCHARGE INSTRUCTIONS: A followup visit with Dr. Jewel Rivera, the patient's primary care provide r, is recommended in 1-2 weeks' time. A followup visit with Infectious Disease has also been arrange d for and scheduled for 06/29/2018 at 2:30 p.m. Forty minutes of time dedicated to discharge efforts today. /[id number]/MODL
== END 2018-06-18 13:50 | disposition home health service (06) | DRG 871 ==
LOC: F3E 15:09
PROVIDERS: ADMIT Internal Medicine; ATTEND Internal Medicine
DX: A40.3 Sepsis due to Streptococcus pneumoniae (principal); J13 Pneumonia due to Streptococcus pneumoniae; J96.01 Acute respiratory failure with hypoxia; R65.20 Severe sepsis without septic shock; N17.9 Acute kidney failure, unspecified; E87.1 Hypo-osmolality and hyponatremia; E78.5 Hyperlipidemia, unspecified; I10 Essential (primary) hypertension; G47.33 Obstructive sleep apnea (adult) (pediatric); Z85.46 Personal history of malignant neoplasm of prostate
CPT/HCPCS: 96365; 97116-GP; 97161-GP; J0456; J0696; J1650; J3370; J7613

== ENCOUNTER → 2018-07-16 | Outpatient (CLI) | payer OTHER | LOC: FIMAGING 10:43 | PROVIDERS: ATTEND Family Medicine | DX: R91.8 Other nonspecific abnormal finding of lung field (principal) ==

== ENCOUNTER → 2018-09-18 | Outpatient (CLI) | payer OTHER | LOC: FIMAGING 11:46 ==